=== PATIENT | male | born 1945 | race Caucasian/White ===

== ENCOUNTER 2016-10-22 21:40 | Inpatient (IN) | payer OTHER ==
[~2016-10-22] VITALS: Ht 182.9 cm; Wt 188.6 kg
[2016-10-22 22:47] LABS: BASO % 0 % (0-3); EOS % 0 % (0-3); HEMATOCRIT 42.3 % (39.0-53.0); HEMOGLOBIN 13.8 g/dL (13.0-17.5); LYMPH # 0.4 x10^3/uL (1.0-4.8); LYMPH % 2 % (24-48); MEAN CORPUSCULAR HEMOGLOBIN 28 pg (25-35); MEAN CORPUSCULAR HGB CONC 33 g/dL (31-37); MEAN CORPUSCULAR VOLUME 85 fL (79-100); MONO % 2 % (0-9); NEUT % 95 % (31-73); PLATELET COUNT 240 x10^3/uL (140-400); RED BLOOD COUNT 5.01 x10^6/uL (4.30-5.70); RED CELL DISTRIBUTION WIDTH 17.6 % (11.5-14.5); WHITE BLOOD COUNT 17.1 x10^3/uL (4.0-11.0)
[2016-10-22 22:51] LABS: CALCIUM 9.1 mg/dL (8.5-10.1); CREATININE 1.4 mg/dL (0.7-1.3); GFR 50.4
[2016-10-22 23:01] LABS: ANISOCYTOSIS SLIGHT; PLT ESTIMATE ADEQUATE (ADEQUATE)
--- NOTE | 2016-10-22 23:22 | PHYS DOC ---
Past Medical History Past Medical History: A-Fib, Diabetes-Type II, Hypertension, ME, Other Additional Past Medical Histor: obesity, cellulitis Past Surgical History: Appendectomy, Other Additional Past Surgical Histo: Left wrist Alcohol Use: Rarely Drug Use: None Adult General Chief Complaint Chief Complaint: WEAKNESS/GENERALIZED HPI HPI Patient is a 70 year old male who presents by EMS because he fell and he could not get up. States he fell around noon today and has been on the ground since. He finally was able to crawl to the phone to call EMS. States he has some general body aching since being down all day, but denies specific injury from fall. He notes recent generalized weakness. States he is being treated for a urinary tract infection with an unknown antibiotic currently. He usually gets his care at the [facility]. States he has chronic bilateral lower extremity swelling and redness from lymphedema and chronic cellulitis; this is unchanged from usual status at this time. He denies chest pain, dyspnea, cough, fever or chills, abdominal pain, diarrhea, back pain, headache, vision changes, dizziness , neck pain, numbness, tingling, focal weakness. Review of Systems Review of Systems Constitutional: Denies fever or chills [] Eyes: Denies change in visual acuity, redness, or eye pain [] HENT: Denies nasal congestion or sore throat [] Respiratory: Denies cough or shortness of breath [] Cardiovascular: No additional information not addressed in HPI [] GI: Denies abdominal pain, nausea, vomiting, bloody stools or diarrhea [] : Denies dysuria or hematuria [] Musculoskeletal: Denies back pain or joint pain [] Integument: Denies rash or skin lesions [] Neurologic: Denies headache, focal weakness or sensory changes [] Endocrine: Denies polyuria or polydipsia [] Allergies Allergies Allergies Coded Allergies Type Severity Reaction Last Updated Verified No Known Drug Allergies 10/22/16 No Physical Exam Physical Exam Constitutional: Well developed, well nourished, no acute distress, non-toxic appearance. [] HENT: Normocephalic, atraumatic, bilateral external ears normal, oropharynx moist, no oral exudates, nose normal. [] Eyes: PERRLA, EOMI, conjunctiva normal, no discharge. [] Neck: Normal range of motion, no tenderness, supple. [] Cardiovascular:Heart rate regular rhythm [] Lungs & Thorax: Bilateral breath sounds clear to auscultation [] Abdomen: Bowel sounds normal, soft, no tenderness. [] Skin: Warm, dry, no erythema, no rash. [] Back: No tenderness, no CVA tenderness. [] Extremities: No tenderness, ROM intact, bilateral 2+ lower extremity edema with brawny and rubor skin changes and intermittent blistering and weeping superficial ulcerations. [] Neurologic: Alert and oriented X 3, normal motor function, normal sensory function, no focal deficits noted. [] Psychologic: Affect normal, judgement normal, mood normal. [] Current Patient Data Vital Signs Vital Signs Date Time Temp Pulse Resp B/P (MAP) Pulse Ox O2 Delivery O2 Flow Rate FiO2 10/22/16 22:44 92 22 130/67 (88) 93 Nasal Cannula 2.0 10/22/16 21:52 98.4 98.4 Lab Values Laboratory Tests Test 10/22/16 22:25 White Blood Count 17.1 x10^3/uL (4.0-11.0) H Red Blood Count 5.01 x10^6/uL (4.30-5.70) Hemoglobin 13.8 g/dL (13.0-17.5) Hematocrit 42.3 % (39.0-53.0) Mean Corpuscular Volume 85 fL (79-100) Mean Corpuscular Hemoglobin 28 pg (25-35) Mean Corpuscular Hemoglobin Concent 33 g/dL (31-37) Red Cell Distribution Width 17.6 % (11.5-14.5) H Platelet Count 240 x10^3/uL (140-400) Neutrophils (%) (Auto) 95 % (31-73) H Lymphocytes (%) (Auto) 2 % (24-48) L Monocytes (%) (Auto) 2 % (0-9) Eosinophils (%) (Auto) 0 % (0-3) Basophils (%) (Auto) 0 % (0-3) Neutrophils # (Auto) 16.3 x10^3uL (1.8-7.7) H Lymphocytes # (Auto) 0.4 x10^3/uL (1.0-4.8) L Monocytes # (Auto) 0.4 x10^3/uL (0.0-1.1) Eosinophils # (Auto) 0.0 x10^3/uL (0.0-0.7) Basophils # (Auto) 0.0 x10^3/uL (0.0-0.2) Segmented Neutrophils % 68 % (35-66) H Band Neutrophils % 27 % (0-9) H Lymphocytes % 3 % (24-48) L Monocytes % 2 % (0-10) Platelet Estimate Adequate (ADEQUATE) Platelet Clumps, EDTA Anisocytosis Slight Sodium Level 139 mmol/L (136-145) Potassium Level 4.0 mmol/L (3.5-5.1) Chloride Level 100 mmol/L (98-107) Carbon Dioxide Level 27 mmol/L (21-32) Anion Gap 12 (6-14) Blood Urea Nitrogen 25 mg/dL (8-26) Creatinine 1.4 mg/dL (0.7-1.3) H Estimated GFR (Cockcroft-Gault) 50.4 Glucose Level 117 mg/dL (70-99) H Calcium Level 9.1 mg/dL (8.5-10.1) Creatine Kinase 3660 U/L (39-308) H Laboratory Tests 10/22/16 22:25 Laboratory Tests 10/22/16 22:25 EKG EKG EKG as interpreted by me as atrial fibrillation with wide complex, rate 98, does not meet STEMI criteria Course & Med Decision Making Course & Med Decision Making Pertinent Labs and Imaging studies reviewed. (See chart for details) He has leukocytosis, urinary tract infection and elevated CK. He will be admitted for generalized weakness and rhabdomyolysis. He will be given gentle hydration for rhabdomyolysis given concern of edema present. Rocephin ordered for urinary tract infection. Discussed case with Dr. Wu, who will admit. Dragon Disclaimer Dragon Disclaimer This electronic medical record was generated, in whole or in part, using a voice recognition dictation system. Departure Departure Impression: Primary Impression: Rhabdomyolysis Additional Impression: Generalized weakness Disposition: ADMITTED INPATIENT Condition: STABLE Referrals: UNKNOWN PCP NAME (PCP) Problem Qualifiers Primary Impression: Rhabdomyolysis Rhabdomyolysis type: non-traumatic Qualified Codes: M62.82 - Rhabdomyolysis Constance FRANKS MD Oct 22, 2016 23:22
[2016-10-22 23:43] LABS: BILIRUBIN,URINE MODERATE (NEG); GLUCOSE,URINE NEGATIVE (NEG); NITRITE,URINE NEGATIVE (NEG); PH,URINE 5.5; PROTEIN,URINE >=300 mg/dL (NEG-TRACE)
[2016-10-22 23:50] LABS: BACTERIA,URINE FEW /HPF (0-FEW); RBC,URINE 0 /HPF (0-2)
[2016-10-22 23:51] LABS: SQUAMOUS EPITHELIAL CELL,UR FEW /LPF
[2016-10-23] VITALS (7 sets, daily range): BP systolic 119–158; BP diastolic 59–100
[2016-10-23] MEDS ORDERED: ACETAMINOPHEN 325 MG TABLET. PO PRN
[2016-10-23] MEDS ORDERED: IV NORMAL SALINE 1000ML BAG 1,000 ML IV SCH
[2016-10-23] MEDS ORDERED: ONDANSETRON PF 4 MG/2 ML VIAL. IV PRN
--- NOTE | 2016-10-23 00:08 | ACF ---
Admission Forms Criteria MUSCULOSKELETAL DISEASE GRG Clinical Indications for Admission to Inpatient Care (Place 'X' for any and all applicable criteria): Hospital admission is needed for appropriate care of the patient because of 1 or more of the following: [ ]I. Fracture, dislocation, or other musculoskeletal injury requiring inpatient care(medical) as indicated by 1 or more of the following(4)(5)(6)(7) [ ]a) Vertebral fracture requiring observation for instability or neurologic compromise (8) [ ]b) Compartment syndrome (proven or cannot be ruled out during observation level of care) (9) [ ]c) Limb-threatening injury [ ]d) Major injury requiring inpatient stabilization such as traction initiation or external fixation before internal fixation or closure of complex or open fracture [ ]e) Major injury requiring inpatient treatment after emergency or observation level care (as appropriate) [ ]f) Severe pain requiring acute inpatient management [ ]g) Injury with suspicion of abuse or neglect (eg., child, dependent elderly) [ ]II. Newly diagnosed or suspected bone, joint, or orthopedic device infection (e.g., osteomyelitis, septic arthritis) needing 1 or more of the following(1)(2)(3) [ ]a) IV antibiotics that cannot be initiated in other than inpatient setting (e.g., patient too unstable or home infusion not available) [ ]b) Device removal or replacement [ ]c) Bone or soft tissue debridement [ ]d) Joint drainage (drain placement or repetitive aspirations) [ ]III. Severe rheumatologic disease (e.g., systemic lupus erythematosus, rheumatoid arthritis) with complications or comorbidities (Also use Optimal Recovery Care Criteria or General Recovery Criteria as appropriate on the basis of predominant condition), including 1 or more of the following( 10)(11)(12)(13) [ ]a) Severe infection (e.g., COMPOSITION MIXER infection, sepsis) (14) [ ]b) Respiratory complications, including 1 or more of the following : [ ]i) Pleural effusion with respiratory compromise [ ]ii) Pulmonary hypertension with congestive failure [ ]iii) Respiratory failure [ ]iv) Pulmonary hemorrhage (15) [ ]c) Hematologic disease, including 1 or more of the following: [ ]i) Coagulopathy with bleeding [ ]ii) Thrombosis with hypercoagulable state [ ]iii) Thrombotic thrombocytopenic purpura [ ]d) Cerebritis with seizures, psychosis, or other severe abnormalities [ ]e) Vertebral destruction with monitoring needed for cervical myelopathy& possible respiratory compromise [ ]f) Exacerbation that requires inpatient treatment (e.g., intravenous immunosuppression) (16) [ ]g) Acute renal failure [ ]h) Cerebritis with seizures, psychosis, Altered mental status, or other neurologic abnormalities [ ]i) Pericardial effusion with tamponade [ ]j) Vertebral destruction, with monitoring needed for cervical myelopathy and possible respiratory compromise [ ]IV. Severe vasculitis with complications or comorbidities (Also use Optimal Recovery Care Criteria General Recovery Criteria as appropriate on the basis of predominant condition), including 1 or more of the following(11)(12)(17)(18)(19)(20) [ ]a) Exacerbation that requires inpatient treatment (e.g., intravenous immunosuppression) (19)(21) [ ]b) Pulmonary hemorrhage (15) [ ]c) COMPOSITION MIXER vasculitis with seizures, psychosis, Altered mental status that is severe or persistent, or other severe abnormalities (22) [ ]d) Cerebral infarction [ ]e) Gastrointestinal ischemia [ ]f) Gangrene or threatened amputation [ ]g) Renal failure (16) [ ]h) Other significant complications of vasculitis ( eg., tissue or organ ischemia, organ dysfunction ) [ ]V. Severe myopathy as indicated by 1 or more of the following (28)(29) [ ]a) New onset of airway compromise or inability to swallow [ ]b) Respiratory deterioration with observation needed for impending respiratory failure [ ]c) Exacerbation that requires inpatient treatment (e.g., intravenous immunosuppression) [ ]. Severe crystal gout (arthropathy) indicated by 1 or more of the following (23)(24) [ ]a) Severe pain requiring acute inpatient management [ ]b) Exacerbation that requires inpatient treatment (e.g., intravenous treatment) [X ]VII.Rhabdomyolysis and 1 or more of the following (25)(26)(27) [ ]a) Acute renal failure [X]b) Need for intravenous hydration after emergency or observation level care (as appropriate) [ ]c) Inability to maintain oral hydration [ ]d) Change in mental status [ ]e) Electrolyte abnormality that remains after emergency or observation level care (as appropriate) [ ]VIII Post amputation complication, as indicated by ANY ONE of the following [ ]a) Infection [ ]b) Dehiscence [ ]c) Myodesis failure [ ]IX. Severe pain requiring acute inpatient management due to musculoskeletal condition [ ]X. Musculoskeletal Disease and ALL of the following: [ ]a) Symptom or finding for which emergency and observation care have failed or are not considered appropriate (Use General Criteria: Observation Care as appropriate) [ ]b) Presence of ANY ONE of the following [ ]i) A General Admission Criteria [ ]ii) A Pediatric General Admission Criteria The original [facility] [employer] content created by [facility] has been revised. The portions of the content which have been revised are identified through the use of italic text or in bold, and [facility] has neither reviewed nor approved the modified material. All other unmodified content is copyright [facility]. Please see references footnoted in the original [facility] edition 2016 Admission Criteria Met?: Yes MATTHEW DUNCAN Oct 23, 2016 00:07
--- NOTE | 2016-10-23 06:15 | EKG ---
[facility] [address] [place] [address] Test Date: 2016-10-22 Test Time: 21:52:43 Pat Name: GERRI SANTOS Department: Room: 526 1 Gender: M Lurer: : 1945 Requested By: Constance FRANKS Order Number: [id number] Reading MD: Ernie Walden Measurements Intervals Shafter Rate: 98 P: ID: QRS: -85 QRSD: 80 T: 81 QT: 392 QTc: 503 Interpretive Statements ATRIAL FIBRILLATION ABNORMAL LEFT AXIS DEVIATION LVH WITH REPOLARIZATION ABNORMALITY QRS(T) CONTOUR ABNORMALITY CONSISTENT WITH ANTERIOR INFARCT PROBABLY OLD CONSISTENT WITH INFERIOR INFARCT PROBABLY OLD RI6.01 Unconfirmed report No previous ECG available for comparison Electronically Signed On 10-28-2016 9:25:57 CDT by Ernie Walden
[2016-10-23] MEDS ORDERED: SULF1TAB23 PO (12:40)
[2016-10-23] MEDS ORDERED: CRESTOR10 MG PO (12:40)
[2016-10-23] MEDS ORDERED: METO25TA4 PO (12:40)
[2016-10-23] MEDS ORDERED: INSU100V13 SQ (12:40)
[2016-10-23] MEDS ORDERED: FURO40TA4 PO (12:40)
[2016-10-23] MEDS ORDERED: METF-620 PO (12:40)
[2016-10-23] MEDS ORDERED: NITR100C6 PO (12:40)
[2016-10-23] MEDS ORDERED: CLON0.1T PO (12:40)
[2016-10-23] MEDS ORDERED: LOSA100T6 PO (12:40)
[2016-10-23] MEDS ORDERED: INSU100C4 SQ ×2 (12:40→13:11)
[2016-10-23] MEDS ORDERED: SMZ/TMP 400/80MG TABLET. PO SCH (13:30)
[2016-10-23] MEDS ORDERED: ATORVASTATIN CALCIUM 40 MG TABLET. PO SCH (13:30)
[2016-10-23] MEDS: LOSARTAN POTASSIUM 50 MG TABLET. PO SCH (14:19)
[2016-10-23] MEDS: cloNIDine HCL 0.1 MG TABLET PO SCH ×2 (14:20→22:41)
[2016-10-23] MEDS: FUROSEMIDE 40 MG TABLET. PO SCH (14:20)
[2016-10-23] MEDS: INSULIN ASPART 300 UNITS/3 ML INSULN.PEN SQ SCH ×2 (14:27→17:18)
--- NOTE | 2016-10-23 19:32 | HP ---
ADMIT DATE: 10/23/2016 CHIEF COMPLAINT: Weakness, fall. "I can't get up." Found on the floor after 9 hours. HISTORY OF PRESENT ILLNESS: The patient is a pleasant elderly white male who fell at home. He is very weak. He lay on the floor for 9 hours. He complained of back pain and some bruising on his back. He apparently was eventually able to crawl and call EMS. He states he is being treated for urinary tract infection currently and usually goes to the [facility]. He also complains of severe lower extremity edema and swelling which is chronic for him, although it is worse now. I have discussed the case with the ER physician. It appears that the patient has severe rhabdomyolysis from being down on the ground for so long without much movement. His CPK level was 3660. We are going to admit the patient and do some wound care and give him fluids, and he may even need long-term care placement. PAST MEDICAL HISTORY: Obesity, chronic lower extremity edema, chronic cellulitis, atrial fibrillation, diabetes, hypertension, myocardial infarction, and left wrist surgery. ALLERGIES: None. FAMILY HISTORY: Coronary artery disease. SOCIAL HISTORY: Does not drink, smoke, or take drugs. MEDICATIONS: Reviewed. Please refer to the [facility]. REVIEW OF SYSTEMS: GENERAL: He complains of weakness and body aches. SKIN: No bruising, hair changes, or rashes. EYES: No blurred, double, or loss of vision. NOSE AND THROAT: No history of nosebleeds, hoarseness, or sore throat. HEART: No history of palpitations, chest pain, or shortness of breath on exertion. LUNGS: Denies cough, hemoptysis, wheezing, or shortness of breath. GASTROINTESTINAL: Denies changes in appetite, nausea, vomiting, diarrhea, or constipation. GENITOURINARY: No history of frequency, urgency, hesitancy, or nocturia. NEUROLOGIC: He complains of falls. PSYCHIATRIC: No history of panic, anxiety, or depression. ENDOCRINE: No history of heat or cold intolerance, polyuria, or polydipsia. EXTREMITIES: Denies muscle weakness, joint pain, pain on walking, or stiffness. PHYSICAL EXAMINATION: VITAL SIGNS: Temperature afebrile, pulse 92, respirations 18, and blood pressure 143/67. GENERAL: He is awake, alert, appears very weak. He is large. HEART: Distant S1, S2. LUNGS: Diminished. ABDOMEN: Soft, obese. EXTREMITIES: 3+ edema. He has also got severe chronic cellulitis. ENDOCRINE: No thyromegaly. LYMPHATICS: No cervical nodes. HEMATOPOIETIC: No bruising. ASSESSMENT AND PLAN: Fall with severe rhabdomyolysis, multiple severe comorbidities, and debility. Suspect he might need a long-term care placement. For now, we are going to give him IV antibiotics, IV fluids. Consult ____. Consult Infectious Disease. Student Liaison Officer to assist with possible long-term care placement. Continue home medications. CAREN PUGA DO DR: CARMEN/edilma JOB#: [id number] / [id number]
[2016-10-23] MEDS: PIPERACILLIN/TAZOBACTAM 3.375 GM in IV NORMAL SALINE 50ML 50 ML IV SCH (22:42)
[2016-10-23] MEDS: METOPROLOL TART IMMED RELEASE 25 MG TABLET. PO SCH (22:42)
[2016-10-23] MEDS: INSULIN DETEMIR 300 UNITS/3 ML INSULN.PEN. SQ SCH (22:51)
[2016-10-24] VITALS (8 sets, daily range): BP systolic 107–159; BP diastolic 50–105
--- NOTE | 2016-10-24 04:49 | CONS ---
DATE OF CONSULTATION: 10/23/2016 ATTENDING PHYSICIAN: Chel Wu MD The patient was seen at the request of Dr. Cox for rehab evaluation. HISTORY OF PRESENT ILLNESS: This is a 70-year-old right-handed male admitted through the Emergency Room last evening after he was found lying on the floor of his house for about 9 hours after he fell and he could not get up, he felt weak in the last few days after getting treatment for urinary tract infection. The patient is being treated for cellulitis of lower extremities. He had chronic bilateral lower extremity swelling and redness from lymphedema and cellulitis. The patient admits some lower back and knee area pain, which was there in the past. The patient with known atrial fibrillation, diabetes mellitus type 2, hypertension, previous myocardial infarction, obesity, appendectomy, and left wrist surgery. He apparently had an accident and had some nerve damage to both hands. 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 He lives alone, had no stairs for him to manage. He usually walks without any assistive devices. He is not known allergic to any medication. He denies any dysuria. He denies any constipation. The patient asked for Physical Therapy and Occupational Therapy note, he got up and walked with a roller walker for short distance. They recommended him to go to Intermediate Care Unit. PHYSICAL EXAMINATION: Today revealed a middle-aged male. He is alert, oriented to time, place, person and circumstance and follows commands appropriately, moves all 4 extremities voluntarily where he had 4+/5 grade muscle strength and deep tendon reflexes are decreased overall with absent knee and ankle jerks. He had edema of both lower extremities with redness and weeping skin lesions in his left leg. The patient had decreased touch and pinprick sensation in a sock and glove distribution. He had a crepitus on range of motion on both knee joints without any obvious knee joint effusion. He had pain free range of motion of his hip joints. He had tenderness to palpation over sacroiliac joint area bilaterally. Straight leg raising test is negative bilaterally. I have not tested his mobility skills at this time. I have examined him while he is sitting in bedside chair, but as per Physical Therapy notes dated this afternoon, he required minimal assist to moderate assistance with transfers, sit to stand using a roller walker with minimal assistance ____ initial stand up from the chair, minimal assistance also to sit in chair as the patient with a slight lower back pain. He walked for about 30 feet with a roller walker with a contact guard assistance slow tess wide base of support and short step length. He complains of increased shortness of breath while up walking, he requires contact guard assistance as the patient has slight low back pain while up. The patient has some skin irritation around the right big toe secondary to fall where he injured his right big toe. ASSESSMENT: A middle-aged male with diabetes mellitus with peripheral neuropathy, obesity, degenerative joint disease of both knees, chronic lower back pain from degenerative disk disease of lumbar vertebrae, chronic lower extremity edema from lymphedema with associated cellulitis and the patient also with known atrial fibrillation, hypertension, and previous myocardial infarction. RECOMMENDATION: To obtain x-rays of his knees and lumbar spine to determine the extent of his degenerative joint disease and disk problems. I doubt he had any new compression fractures to get him Rooke boots to get ____ of some other redness and swelling of his feet. Agree with the plan for physical therapy and occupational therapy and transfer to Intermediate Care Unit when he is medically stable. Dr. Cox, I appreciate asking me to participate in the care of this interesting patient. I will be glad to follow him with you as needed for the rehabilitation. BRENTON GUTIÉRREZ MD DR: PAMELA/edilma JOB#: [id number] / [id number]
[2016-10-24] MEDS: PIPERACILLIN/TAZOBACTAM 3.375 GM in IV NORMAL SALINE 50ML 50 ML IV SCH ×2 (06:20→12:08)
--- NOTE | 2016-10-24 08:18 | RAD ---
Indication: Fall and back pain. Time of exam 0804 hours. AP and lateral views of the lumbar spine were obtained. Curvature is normal. There is minimal retrolisthesis of L2 on L3. Vertebral body heights are well-maintained. No acute compression fracture is detected. There is significant degenerative disc disease at the T12-L1, L1-2 and L2-3 levels with moderate disc space narrowing and endplate osteophyte formation. Impression: Spondylosis in the lower thoracic and upper lumbar spine. No acute bony abnormality is seen.
--- NOTE | 2016-10-24 08:19 | RAD ---
Indication: Knee pain and fall. Time of exam 0759 hours. Multiple views bilateral knees were obtained. There is severe medial compartmental degenerative change on the left and moderate medial compartmental degenerative change on the right. Lateral compartments show lesser degenerative change with just marginal osteophyte formation. No fractures are seen. Ration: Bilateral degenerative change, greatest on the left.
[2016-10-24] MEDS: LOSARTAN POTASSIUM 50 MG TABLET. PO SCH (08:42)
[2016-10-24] MEDS: cloNIDine HCL 0.1 MG TABLET PO SCH ×2 (08:43→22:14)
[2016-10-24] MEDS: FUROSEMIDE 40 MG TABLET. PO SCH ×2 (08:44→14:50)
[2016-10-24] MEDS: INSULIN ASPART 300 UNITS/3 ML INSULN.PEN SQ SCH ×3 (08:47→16:58)
[2016-10-24] MEDS: METOPROLOL TART IMMED RELEASE 25 MG TABLET. PO SCH ×2 (09:36→22:14)
--- NOTE | 2016-10-24 09:57 | PDOC ---
PROGRESS NOTES Subjective Subjective He did not sleep well with air mattress as it is too soft. 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 Assessment Assessment Problems Medical Problems: (1) Generalized weakness Status: Acute (2) Rhabdomyolysis Status: Acute Plan Plan of Care To get him up as tolerated and to SNF when medically stable. Comment Review of Relevant I have reviewed the following items gela (where applicable) has been applied. Labs Laboratory Tests Test 10/22/16 22:25 10/22/16 23:38 10/23/16 07:51 10/23/16 11:53 White Blood Count 17.1 x10^3/uL (4.0-11.0) Red Blood Count 5.01 x10^6/uL (4.30-5.70) Hemoglobin 13.8 g/dL (13.0-17.5) Hematocrit 42.3 % (39.0-53.0) Mean Corpuscular Volume 85 fL (79-100) Mean Corpuscular Hemoglobin 28 pg (25-35) Mean Corpuscular Hemoglobin Concent 33 g/dL (31-37) Red Cell Distribution Width 17.6 % (11.5-14.5) Platelet Count 240 x10^3/uL (140-400) Neutrophils (%) (Auto) 95 % (31-73) Lymphocytes (%) (Auto) 2 % (24-48) Monocytes (%) (Auto) 2 % (0-9) Eosinophils (%) (Auto) 0 % (0-3) Basophils (%) (Auto) 0 % (0-3) Neutrophils # (Auto) 16.3 x10^3uL (1.8-7.7) Lymphocytes # (Auto) 0.4 x10^3/uL (1.0-4.8) Monocytes # (Auto) 0.4 x10^3/uL (0.0-1.1) Eosinophils # (Auto) 0.0 x10^3/uL (0.0-0.7) Basophils # (Auto) 0.0 x10^3/uL (0.0-0.2) Segmented Neutrophils % 68 % (35-66) Band Neutrophils % 27 % (0-9) Lymphocytes % 3 % (24-48) Monocytes % 2 % (0-10) Platelet Estimate Adequate (ADEQUATE) Platelet Clumps, EDTA Anisocytosis Slight Sodium Level 139 mmol/L (136-145) Potassium Level 4.0 mmol/L (3.5-5.1) Chloride Level 100 mmol/L (98-107) Carbon Dioxide Level 27 mmol/L (21-32) Anion Gap 12 (6-14) Blood Urea Nitrogen 25 mg/dL (8-26) Creatinine 1.4 mg/dL (0.7-1.3) Estimated GFR (Cockcroft-Gault) 50.4 Glucose Level 117 mg/dL (70-99) Calcium Level 9.1 mg/dL (8.5-10.1) Creatine Kinase 3660 U/L (39-308) Urine Collection Type Unknown Urine Color [place] Urine Clarity Cloudy Urine pH 5.5 Urine Specific [place] >=1.030 Urine Protein >=300 mg/dL (NEG-TRACE) Urine Glucose (UA) Negative mg/dL (NEG) Urine Ketones (Stick) Trace mg/dL (NEG) Urine Blood Large (NEG) Urine Nitrite Negative (NEG) Urine Bilirubin Moderate (NEG) Urine Urobilinogen Dipstick 1.0 mg/dL (0.2 mg/dL) Urine Leukocyte Esterase Small (NEG) Urine RBC 0 /HPF (0-2) Urine WBC 1-4 /HPF (0-4) Urine Squamous Epithelial Cells Few /LPF Urine Amorphous Sediment Present /HPF Urine Bacteria Few /HPF (0-FEW) Urine Hyaline Casts Moderate /HPF Urine Mucus Mod /LPF Glucose (Fingerstick) 137 mg/dL (70-99) 207 mg/dL (70-99) Test 10/23/16 16:58 10/23/16 20:44 10/24/16 07:35 Glucose (Fingerstick) 256 mg/dL (70-99) 386 mg/dL (70-99) 225 mg/dL (70-99) Laboratory Tests Test 10/23/16 11:53 10/23/16 16:58 10/23/16 20:44 10/24/16 07:35 Glucose (Fingerstick) 207 mg/dL (70-99) 256 mg/dL (70-99) 386 mg/dL (70-99) 225 mg/dL (70-99) Medications Current Medications Ondansetron HCl (Zofran) 4 mg PRN Q8HRS PRN IV NAUSEA/VOMITING; Start 10/23/16 at 00:00; Stop 10/23/16 at 23:59; Status DC Sodium Chloride 1,000 ml @ 100 mls/hr Q10H IV Last administered on 10/23/16 01 :11; Start 10/23/16 at 00:00; Stop 10/23/16 at 00:03; Status DC Acetaminophen (Tylenol) 650 mg PRN Q4HRS PRN PO FEVER; Start 10/23/16 at 00:00; Stop 10/23/16 at 23:59; Status DC Ceftriaxone Sodium 1 gm/ Sodium Chloride 50 ml @ 100 mls/hr Q24H IV ; Start 10/23/16 at 22:00; Stop 10/23/16 at 22:00; Status DC Ceftriaxone Sodium 1 gm/ Sodium Chloride 50 ml @ 100 mls/hr ONCE ONCE IV Last administered on 10/23/16 01:11; Start 10/23/16 at 00:30; Stop 10/23/16 at 00: 59; Status DC Clonidine HCl (Catapres) 0.1 mg BID PO Last administered on 10/24/16 08:43; Start 10/23/16 at 13:30 Furosemide (Lasix) 40 mg DAILY PO Last administered on 10/24/16 08:44; Start at 13:30 Metoprolol Tartrate (Lopressor) 75 mg BID PO Last administered on 10/24/16 09: 36; Start 10/23/16 at 21:00 Trimethoprim/ Sulfamethoxazole (Bactrim Ss) 2 tab BID PO Last administered on 14:22; Start 10/23/16 at 13:30; Stop 10/23/16 at 17:14; Status DC Insulin Detemir (Levemir) 160 units QHS SQ Last administered on 10/23/16 22:51 ; Start 10/23/16 at 21:00 Losartan Potassium (Cozaar) 100 mg DAILY PO Last administered on 10/24/16 08:42 ; Start 10/23/16 at 13:30 Atorvastatin Calcium (Lipitor) 40 mg DAILY PO Last administered on 10/23/16 14: 20; Start 10/23/16 at 13:30; Stop 10/23/16 at 16:29; Status DC Insulin Aspart (NovoLOG) 22 units TIDAC SQ Last administered on 10/24/16 08:47 ; Start 10/23/16 at 14:00; Stop 10/24/16 at 09:43; Status DC Piperacillin Sod/ Tazobactam Sod 3.375 gm/Sodium Chloride 50 ml @ 100 mls/hr Q6HRS IV Last administered on 10/24/16 06:20; Start 10/23/16 at 20:30 Insulin Aspart (NovoLOG) 44 units TIDAC SQ ; Start 10/24/16 at 11:30 Active Scripts Active Reported Novolog (Insulin Aspart) 100 Unit/1 Ml Cartridge 22 Unit SQ TIDAC Bactrim 400-80 Mg Tablet (Sulfamethoxazole/Trimethoprim) 1 Each Tablet 2 Tab PO BID Crestor (Rosuvastatin Calcium) 10 Mg Tablet 1 Tab PO DAILY Nitrofurantoin [place]-Mcr 100 Mg (Nitrofurantoin Monohyd/M-Cryst) 100 Mg Capsule 1 Cap PO BID Metoprolol Tartrate 25 Mg Tablet 3 Tab PO BID Metformin Hcl 1,000 Mg Tablet 1,000 Mg PO BIDWMEALS Losartan Potassium 100 Mg Tablet 100 Mg PO DAILY Levemir (Insulin Detemir) 100 Unit/1 Ml Vial 160 Unit SQ HS Novolog (Insulin Aspart) 100 Unit/1 Ml Cartridge 44 Unit SQ TIDAC Furosemide 40 Mg Tablet 1 Tab PO DAILY Clonidine Hcl 0.1 Mg Tablet 0.1 Mg PO BID Vitals/I & O Vital Sign - Last 24 Hours 10/23/16 10/23/16 10/23/16 10/23/16 11:06 14:19 14:20 15:00 Temp 98.1 97.8 98.1 97.8 Pulse 105 90 90 92 Resp 20 20 B/P (MAP) 119/65 (83) 143/71 143/71 130/100 (110) Pulse Ox 94 96 O2 Delivery Nasal Cannula Nasal Cannula O2 Flow Rate 2.0 3.0 10/23/16 10/23/16 10/23/16 10/23/16 19:00 20:00 22:41 22:42 Temp 98.7 98.7 Pulse 96 96 96 Resp 18 B/P (MAP) 139/93 (108) 139/93 139/93 Pulse Ox 97 O2 Delivery Nasal Cannula Nasal Cannula O2 Flow Rate 3.0 3.0 10/23/16 10/24/16 10/24/16 10/24/16 23:00 03:00 07:35 08:42 Temp 98.1 98.2 97.5 98.1 98.2 97.5 Pulse 96 103 80 80 Resp 18 17 18 B/P (MAP) 149/60 (89) 125/50 (75) 107/64 (78) 107/67 Pulse Ox 93 100 96 O2 Delivery Nasal Cannula Nasal Cannula Nasal Cannula O2 Flow Rate 3.0 3.0 3.0 10/24/16 10/24/16 08:43 09:36 Pulse 80 80 B/P (MAP) 107/64 107/64 Intake and Output 10/23/16 10/23/16 10/24/16 15:00 23:00 07:00 Intake Total 558 ml 558 ml 1100 ml Output Total 4 ml 850 ml Balance 558 ml 554 ml 250 ml BRENTON GUTIÉRREZ MD Oct 24, 2016 09:56
--- NOTE | 2016-10-24 11:55 | PDOC ---
PROGRESS NOTES Chief Complaint Chief Complaint Fall with severe Rhabdomyolysis Obesity, chronic lower extremity edema, chronic cellulitis, atrial fibrillation, diabetes, hypertension, myocardial infarction, and left wrist surgery. History of Present Illness History of Present Illness Seen and examined DW RN GABBI Pt wants and insist on doubling his insulin. "Iv been doing this a long time" Vitals Vitals Vital Signs Date Time Temp Pulse Resp B/P (MAP) Pulse Ox O2 Delivery O2 Flow Rate FiO2 10/24/16 10:30 97.7 66 18 139/78 (98) 95 Nasal Cannula 3.0 97.7 Physical Exam General: Alert, Oriented X3, Cooperative Heart: Regular rate, Normal S1, Normal S2 Lungs: Clear Abdomen: Normal bowel sounds Extremities: Other (Massive erythematous edema) Skin: Other (legs with cellulitis) Labs LABS Laboratory Tests Test 10/23/16 11:53 10/23/16 16:58 10/23/16 20:44 10/24/16 07:35 Glucose (Fingerstick) 207 mg/dL (70-99) 256 mg/dL (70-99) 386 mg/dL (70-99) 225 mg/dL (70-99) Test 10/24/16 11:26 Glucose (Fingerstick) 209 mg/dL (70-99) Review of Systems Review of Systems co hunger co qureshi wants his normal insulin dose Assessment and Plan Assessmemt and Plan Problems Medical Problems: (1) Generalized weakness Status: Acute (2) Rhabdomyolysis Status: Acute Fall with severe Rhabdomyolysis Obesity, chronic lower extremity edema, chronic cellulitis, atrial fibrillation, diabetes, hypertension, myocardial infarction, and left wrist surgery. Plan Will cont IV fluids recheck labs Appreciate subspecialist input Increase insulin as he insist on it PTOT SNu eval( ?LTC) Prog guarded Problems: Comment Review of Relevant I have reviewed the following items gela (where applicable) has been applied. Labs Laboratory Tests Test 10/22/16 22:25 10/22/16 23:38 10/23/16 07:51 10/23/16 11:53 White Blood Count 17.1 x10^3/uL (4.0-11.0) Red Blood Count 5.01 x10^6/uL (4.30-5.70) Hemoglobin 13.8 g/dL (13.0-17.5) Hematocrit 42.3 % (39.0-53.0) Mean Corpuscular Volume 85 fL (79-100) Mean Corpuscular Hemoglobin 28 pg (25-35) Mean Corpuscular Hemoglobin Concent 33 g/dL (31-37) Red Cell Distribution Width 17.6 % (11.5-14.5) Platelet Count 240 x10^3/uL (140-400) Neutrophils (%) (Auto) 95 % (31-73) Lymphocytes (%) (Auto) 2 % (24-48) Monocytes (%) (Auto) 2 % (0-9) Eosinophils (%) (Auto) 0 % (0-3) Basophils (%) (Auto) 0 % (0-3) Neutrophils # (Auto) 16.3 x10^3uL (1.8-7.7) Lymphocytes # (Auto) 0.4 x10^3/uL (1.0-4.8) Monocytes # (Auto) 0.4 x10^3/uL (0.0-1.1) Eosinophils # (Auto) 0.0 x10^3/uL (0.0-0.7) Basophils # (Auto) 0.0 x10^3/uL (0.0-0.2) Segmented Neutrophils % 68 % (35-66) Band Neutrophils % 27 % (0-9) Lymphocytes % 3 % (24-48) Monocytes % 2 % (0-10) Platelet Estimate Adequate (ADEQUATE) Platelet Clumps, EDTA Anisocytosis Slight Sodium Level 139 mmol/L (136-145) Potassium Level 4.0 mmol/L (3.5-5.1) Chloride Level 100 mmol/L (98-107) Carbon Dioxide Level 27 mmol/L (21-32) Anion Gap 12 (6-14) Blood Urea Nitrogen 25 mg/dL (8-26) Creatinine 1.4 mg/dL (0.7-1.3) Estimated GFR (Cockcroft-Gault) 50.4 Glucose Level 117 mg/dL (70-99) Calcium Level 9.1 mg/dL (8.5-10.1) Creatine Kinase 3660 U/L (39-308) Urine Collection Type Unknown Urine Color [place] Urine Clarity Cloudy Urine pH 5.5 Urine Specific [place] >=1.030 Urine Protein >=300 mg/dL (NEG-TRACE) Urine Glucose (UA) Negative mg/dL (NEG) Urine Ketones (Stick) Trace mg/dL (NEG) Urine Blood Large (NEG) Urine Nitrite Negative (NEG) Urine Bilirubin Moderate (NEG) Urine Urobilinogen Dipstick 1.0 mg/dL (0.2 mg/dL) Urine Leukocyte Esterase Small (NEG) Urine RBC 0 /HPF (0-2) Urine WBC 1-4 /HPF (0-4) Urine Squamous Epithelial Cells Few /LPF Urine Amorphous Sediment Present /HPF Urine Bacteria Few /HPF (0-FEW) Urine Hyaline Casts Moderate /HPF Urine Mucus Mod /LPF Glucose (Fingerstick) 137 mg/dL (70-99) 207 mg/dL (70-99) Test 10/23/16 16:58 10/23/16 20:44 10/24/16 07:35 10/24/16 11:26 Glucose (Fingerstick) 256 mg/dL (70-99) 386 mg/dL (70-99) 225 mg/dL (70-99) 209 mg/dL (70-99) Laboratory Tests Test 10/23/16 11:53 10/23/16 16:58 10/23/16 20:44 10/24/16 07:35 Glucose (Fingerstick) 207 mg/dL (70-99) 256 mg/dL (70-99) 386 mg/dL (70-99) 225 mg/dL (70-99) Test 10/24/16 11:26 Glucose (Fingerstick) 209 mg/dL (70-99) Medications Current Medications Ondansetron HCl (Zofran) 4 mg PRN Q8HRS PRN IV NAUSEA/VOMITING; Start 10/23/16 at 00:00; Stop 10/23/16 at 23:59; Status DC Sodium Chloride 1,000 ml @ 100 mls/hr Q10H IV Last administered on 10/23/16t 01 :11; Start 10/23/16 at 00:00; Stop 10/23/16 at 00:03; Status DC Acetaminophen (Tylenol) 650 mg PRN Q4HRS PRN PO FEVER; Start 10/23/16 at 00:00; Stop 10/23/16 at 23:59; Status DC Ceftriaxone Sodium 1 gm/ Sodium Chloride 50 ml @ 100 mls/hr Q24H IV ; Start 10/23/16 at 22:00; Stop 10/23/16 at 22:00; Status DC Ceftriaxone Sodium 1 gm/ Sodium Chloride 50 ml @ 100 mls/hr ONCE ONCE IV Last administered on 10/23/16 01:11; Start 10/23/16 at 00:30; Stop 10/23/16 at 00: 59; Status DC Clonidine HCl (Catapres) 0.1 mg BID PO Last administered on 10/24/16 08:43; Start 10/23/16 at 13:30 Furosemide (Lasix) 40 mg DAILY PO Last administered on 10/24/16 08:44; Start at 13:30 Metoprolol Tartrate (Lopressor) 75 mg BID PO Last administered on 10/24/16 09: 36; Start 10/23/16 at 21:00 Trimethoprim/ Sulfamethoxazole (Bactrim Ss) 2 tab BID PO Last administered on 14:22; Start 10/23/16 at 13:30; Stop 10/23/16 at 17:14; Status DC Insulin Detemir (Levemir) 160 units QHS SQ Last administered on 10/23/16 22:51 ; Start 10/23/16 at 21:00 Losartan Potassium (Cozaar) 100 mg DAILY PO Last administered on 10/24/16 08:42 ; Start 10/23/16 at 13:30 Atorvastatin Calcium (Lipitor) 40 mg DAILY PO Last administered on 10/23/16 14: 20; Start 10/23/16 at 13:30; Stop 10/23/16 at 16:29; Status DC Insulin Aspart (NovoLOG) 22 units TIDAC SQ Last administered on 10/24/16 08:47 ; Start 10/23/16 at 14:00; Stop 10/24/16 at 09:43; Status DC Piperacillin Sod/ Tazobactam Sod 3.375 gm/Sodium Chloride 50 ml @ 100 mls/hr Q6HRS IV Last administered on 10/24/16 06:20; Start 10/23/16 at 20:30 Insulin Aspart (NovoLOG) 44 units TIDAC SQ ; Start 10/24/16 at 11:30 Active Scripts Active Reported Novolog (Insulin Aspart) 100 Unit/1 Ml Cartridge 22 Unit SQ TIDAC Bactrim 400-80 Mg Tablet (Sulfamethoxazole/Trimethoprim) 1 Each Tablet 2 Tab PO BID Crestor (Rosuvastatin Calcium) 10 Mg Tablet 1 Tab PO DAILY Nitrofurantoin [place]-Mcr 100 Mg (Nitrofurantoin Monohyd/M-Cryst) 100 Mg Capsule 1 Cap PO BID Metoprolol Tartrate 25 Mg Tablet 3 Tab PO BID Metformin Hcl 1,000 Mg Tablet 1,000 Mg PO BIDWMEALS Losartan Potassium 100 Mg Tablet 100 Mg PO DAILY Levemir (Insulin Detemir) 100 Unit/1 Ml Vial 160 Unit SQ HS Novolog (Insulin Aspart) 100 Unit/1 Ml Cartridge 44 Unit SQ TIDAC Furosemide 40 Mg Tablet 1 Tab PO DAILY Clonidine Hcl 0.1 Mg Tablet 0.1 Mg PO BID Vitals/I & O Vital Sign - Last 24 Hours 10/23/16 10/23/16 10/23/16 10/23/16 14:19 14:20 15:00 19:00 Temp 97.8 98.7 97.8 98.7 Pulse 90 90 92 96 Resp 20 18 B/P (MAP) 143/71 143/71 130/100 (110) 139/93 (108) Pulse Ox 96 97 O2 Delivery Nasal Cannula Nasal Cannula O2 Flow Rate 3.0 3.0 10/23/16 10/23/16 10/23/16 10/23/16 20:00 22:41 22:42 23:00 Temp 98.1 98.1 Pulse 96 96 96 Resp 18 B/P (MAP) 139/93 139/93 149/60 (89) Pulse Ox 93 O2 Delivery Nasal Cannula Nasal Cannula O2 Flow Rate 3.0 3.0 10/24/16 10/24/16 10/24/16 10/24/16 03:00 07:35 08:00 08:42 Temp 98.2 97.5 98.2 97.5 Pulse 103 80 80 Resp 17 18 B/P (MAP) 125/50 (75) 107/64 (78) 107/67 Pulse Ox 100 96 O2 Delivery Nasal Cannula Nasal Cannula Nasal Cannula O2 Flow Rate 3.0 3.0 3.0 10/24/16 10/24/16 10/24/16 08:43 09:36 10:30 Temp 97.7 97.7 Pulse 80 80 66 Resp 18 B/P (MAP) 107/64 107/64 139/78 (98) Pulse Ox 95 O2 Delivery Nasal Cannula O2 Flow Rate 3.0 Intake and Output 10/23/16 10/23/16 10/24/16 15:00 23:00 07:00 Intake Total 558 ml 558 ml 1100 ml Output Total 4 ml 850 ml Balance 558 ml 554 ml 250 ml CAREN PUGA III DO Oct 24, 2016 11:55
--- NOTE | 2016-10-24 13:39 | PDOC ---
Infectious Disease Note Vital Sign Vital Signs Vital Signs Date Time Temp Pulse Resp B/P (MAP) Pulse Ox O2 Delivery O2 Flow Rate FiO2 10/24/16 10:30 97.7 66 18 139/78 (98) 95 Nasal Cannula 3.0 97.7 Labs Lab Laboratory Tests Test 10/23/16 16:58 10/23/16 20:44 10/24/16 07:35 10/24/16 11:26 Glucose (Fingerstick) 256 mg/dL (70-99) 386 mg/dL (70-99) 225 mg/dL (70-99) 209 mg/dL (70-99) Objective Assessment Leukocytosis Cellulitis of LLE superimposed on chronic venous insufficiency Rhabdomyolysis post fall DM Morbid Obesity, BMI 58 Recent Dx UIT-took Bactrim 1-2 days prior to admit Plan Plan of Care Zosyn Monitor WBC, Cr and temp Local wound care and leg elevation Glucose control Diet and weight management Thank you [id number] Attending Co-Sign The patient was seen and interviewed as well as examined at the bedside. The chart was reviewed. The case was discussed. Agree with the plan of care. JONNY CHAVEZ APRN Oct 24, 2016 13:39 GLENNY ROQUE MD Oct 24, 2016 13:54
[2016-10-24] MEDS: CIPROFLOXACIN HCL 250 MG TABLET. PO SCH ×2 (14:49→22:13)
[2016-10-24] MEDS: LINEZOLID 600 MG TABLET PO SCH ×2 (14:49→22:13)
[2016-10-24] MEDS: HYDROcodone/APAP 5/325MG 1 TAB TABLET PO PRN ×2 (16:55→22:15)
[2016-10-24] MEDS: TAMSULOSIN 0.4 MG CAP.ER.24H. PO SCH (17:31)
[2016-10-24] MEDS: INSULIN DETEMIR 300 UNITS/3 ML INSULN.PEN. SQ SCH (21:00)
[2016-10-24] MEDS: ZOLPIDEM 5 MG TABLET. PO SCH (22:14)
[2016-10-24] MEDS ORDERED: ZOLPIDEM 5 MG TABLET. PO PRN (22:15)
[2016-10-25 03:00] VITALS: BP 131/72
[2016-10-25] MEDS: INSULIN ASPART 300 UNITS/3 ML INSULN.PEN SQ SCH ×3 (07:30→17:20)
[2016-10-25 07:35] VITALS: BP 139/65
[2016-10-25] MEDS: METOPROLOL TART IMMED RELEASE 25 MG TABLET. PO SCH ×2 (08:51→21:45)
[2016-10-25] MEDS: POTASSIUM CHLORIDE 20 MEQ TABLET.ER. PO SCH (08:52)
[2016-10-25] MEDS: LOSARTAN POTASSIUM 50 MG TABLET. PO SCH (08:52)
[2016-10-25] MEDS: CIPROFLOXACIN HCL 250 MG TABLET. PO SCH ×2 (08:53→21:44)
[2016-10-25] MEDS: LINEZOLID 600 MG TABLET PO SCH ×2 (08:53→21:43)
--- NOTE | 2016-10-25 08:53 | PDOC ---
Infectious Disease Note Subjective Subjective RN unable to place IV yesterday, abx changed to oral route. Tolerating well Strength improving, says able to walk now Denies pain, Hoping to go home soon ROS ROS GEN: Denies fevers, chills, sweats CV: Denies chest pain RESP: Denies shortness of air, cough GI: Denies n/v/d Vital Sign Vital Signs Vital Signs Date Time Temp Pulse Resp B/P (MAP) Pulse Ox O2 Delivery O2 Flow Rate FiO2 10/25/16 03:00 96.9 83 19 131/72 (91) 93 Nasal Cannula 3.0 96.9 Physical Exam PHYSICAL EXAM GENERAL: Sitting side of bed, legs down, eating LUNGS: Clear HEART: S1S2 ABD: Obese, BS present, soft, NT EXT: BLE edema, L>R with chronic stastis changes. 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 Objective Assessment Leukocytosis Cellulitis of LLE superimposed on chronic venous insufficiency Rhabdomyolysis post fall DM Morbid Obesity, BMI 58 Recent Dx UIT-took Bactrim 1-2 days prior to admit Plan Plan of Care Zyvox and cipro f/u today's labs Local wound care and leg elevation Glucose control Diet and weight management Attending Co-Sign The patient was seen and interviewed as well as examined at the bedside. The chart was reviewed. The case was discussed. Agree with the plan of care. JONNY CHAVEZ APRN Oct 25, 2016 08:53 GLENNY ROQUE MD Oct 25, 2016 14:22
[2016-10-25] MEDS: cloNIDine HCL 0.1 MG TABLET PO SCH ×2 (08:54→21:45)
[2016-10-25] MEDS: FUROSEMIDE 40 MG TABLET. PO SCH ×2 (08:54→14:29)
[2016-10-25] MEDS: TAMSULOSIN 0.4 MG CAP.ER.24H. PO SCH (08:54)
[2016-10-25 10:15] LABS: BASO % 0 % (0-3); EOS % 3 % (0-3); HEMATOCRIT 38.2 % (39.0-53.0); HEMOGLOBIN 12.5 g/dL (13.0-17.5); LYMPH # 1.2 x10^3/uL (1.0-4.8); LYMPH % 15 % (24-48); MEAN CORPUSCULAR HEMOGLOBIN 28 pg (25-35); MEAN CORPUSCULAR HGB CONC 33 g/dL (31-37); MEAN CORPUSCULAR VOLUME 84 fL (79-100); MONO % 9 % (0-9); NEUT % 72 % (31-73); PLATELET COUNT 201 x10^3/uL (140-400); RED BLOOD COUNT 4.55 x10^6/uL (4.30-5.70); RED CELL DISTRIBUTION WIDTH 17.6 % (11.5-14.5)
[2016-10-25 10:34] VITALS: BP 121/61
[2016-10-25 10:34] LABS: CALCIUM 8.4 mg/dL (8.5-10.1); CREATININE 1.2 mg/dL (0.7-1.3); GFR 60.2; POTASSIUM 4.5 mmol/L (3.5-5.1)
[2016-10-25 14:30] VITALS: BP 113/74
--- NOTE | 2016-10-25 15:14 | PDOC ---
PROGRESS NOTES Chief Complaint Chief Complaint Fall with severe Rhabdomyolysis Obesity, chronic lower extremity edema, chronic cellulitis, atrial fibrillation, diabetes, hypertension, myocardial infarction, and left wrist surgery.Leukocytosis chronic venous insufficiency DM BMI 58 Recent Dx UIT-took Bactrim 1-2 days prior to admit History of Present Illness History of Present Illness Seen and examined DW RN VSS Pt wants and insist on continuing doubling his insulin. "Iv been doing this a long time" Notes reviewed Vitals Vitals Vital Signs Date Time Temp Pulse Resp B/P (MAP) Pulse Ox O2 Delivery O2 Flow Rate FiO2 10/25/16 10:34 97.5 60 18 121/61 (81) 95 Room Air 97.5 10/25/16 08:00 3.0 Physical Exam General: Alert, Oriented X3, Cooperative Heart: Regular rate, Normal S1, Normal S2 Lungs: Clear Abdomen: Normal bowel sounds Extremities: Other (Massive erythematous edema) Skin: Other (legs with cellulitis) Labs LABS Laboratory Tests Test 10/24/16 16:41 10/24/16 19:40 10/25/16 07:39 10/25/16 09:40 Glucose (Fingerstick) 124 mg/dL (70-99) 113 mg/dL (70-99) 92 mg/dL (70-99) White Blood Count 8.0 x10^3/uL (4.0-11.0) Red Blood Count 4.55 x10^6/uL (4.30-5.70) Hemoglobin 12.5 g/dL (13.0-17.5) Hematocrit 38.2 % (39.0-53.0) Mean Corpuscular Volume 84 fL (79-100) Mean Corpuscular Hemoglobin 28 pg (25-35) Mean Corpuscular Hemoglobin Concent 33 g/dL (31-37) Red Cell Distribution Width 17.6 % (11.5-14.5) Platelet Count 201 x10^3/uL (140-400) Neutrophils (%) (Auto) 72 % (31-73) Lymphocytes (%) (Auto) 15 % (24-48) Monocytes (%) (Auto) 9 % (0-9) Eosinophils (%) (Auto) 3 % (0-3) Basophils (%) (Auto) 0 % (0-3) Neutrophils # (Auto) 5.7 x10^3uL (1.8-7.7) Lymphocytes # (Auto) 1.2 x10^3/uL (1.0-4.8) Monocytes # (Auto) 0.7 x10^3/uL (0.0-1.1) Eosinophils # (Auto) 0.3 x10^3/uL (0.0-0.7) Basophils # (Auto) 0.0 x10^3/uL (0.0-0.2) Sodium Level 138 mmol/L (136-145) Potassium Level 4.5 mmol/L (3.5-5.1) Chloride Level 102 mmol/L (98-107) Carbon Dioxide Level 31 mmol/L (21-32) Anion Gap 5 (6-14) Blood Urea Nitrogen 26 mg/dL (8-26) Creatinine 1.2 mg/dL (0.7-1.3) Estimated GFR (Cockcroft-Gault) 60.2 Glucose Level 183 mg/dL (70-99) Calcium Level 8.4 mg/dL (8.5-10.1) Test 10/25/16 11:21 Glucose (Fingerstick) 182 mg/dL (70-99) Review of Systems Review of Systems co weakness co hunger Assessment and Plan Assessmemt and Plan Problems Medical Problems: (1) Generalized weakness Status: Acute (2) Rhabdomyolysis Status: Acute Fall with severe Rhabdomyolysis Obesity, chronic lower extremity edema, chronic cellulitis, atrial fibrillation, diabetes, hypertension, myocardial infarction, and left wrist surgery.Leukocytosis chronic venous insufficiency DM BMI 58 Recent Dx UIT-took Bactrim 1-2 days prior to admit Plan Iv fluids Home meds Daily labs PTOT Weight loss SNU eval Antibx Problems: Comment Review of Relevant I have reviewed the following items gela (where applicable) has been applied. Labs Laboratory Tests Test 10/23/16 16:58 10/23/16 20:44 10/24/16 07:35 10/24/16 11:26 Glucose (Fingerstick) 256 mg/dL (70-99) 386 mg/dL (70-99) 225 mg/dL (70-99) 209 mg/dL (70-99) Test 10/24/16 14:58 10/24/16 16:41 10/24/16 19:40 10/25/16 07:39 Glucose (Fingerstick) 182 mg/dL (70-99) 124 mg/dL (70-99) 113 mg/dL (70-99) 92 mg/dL (70-99) Test 10/25/16 09:40 10/25/16 11:21 White Blood Count 8.0 x10^3/uL (4.0-11.0) Red Blood Count 4.55 x10^6/uL (4.30-5.70) Hemoglobin 12.5 g/dL (13.0-17.5) Hematocrit 38.2 % (39.0-53.0) Mean Corpuscular Volume 84 fL (79-100) Mean Corpuscular Hemoglobin 28 pg (25-35) Mean Corpuscular Hemoglobin Concent 33 g/dL (31-37) Red Cell Distribution Width 17.6 % (11.5-14.5) Platelet Count 201 x10^3/uL (140-400) Neutrophils (%) (Auto) 72 % (31-73) Lymphocytes (%) (Auto) 15 % (24-48) Monocytes (%) (Auto) 9 % (0-9) Eosinophils (%) (Auto) 3 % (0-3) Basophils (%) (Auto) 0 % (0-3) Neutrophils # (Auto) 5.7 x10^3uL (1.8-7.7) Lymphocytes # (Auto) 1.2 x10^3/uL (1.0-4.8) Monocytes # (Auto) 0.7 x10^3/uL (0.0-1.1) Eosinophils # (Auto) 0.3 x10^3/uL (0.0-0.7) Basophils # (Auto) 0.0 x10^3/uL (0.0-0.2) Sodium Level 138 mmol/L (136-145) Potassium Level 4.5 mmol/L (3.5-5.1) Chloride Level 102 mmol/L (98-107) Carbon Dioxide Level 31 mmol/L (21-32) Anion Gap 5 (6-14) Blood Urea Nitrogen 26 mg/dL (8-26) Creatinine 1.2 mg/dL (0.7-1.3) Estimated GFR (Cockcroft-Gault) 60.2 Glucose Level 183 mg/dL (70-99) Calcium Level 8.4 mg/dL (8.5-10.1) Glucose (Fingerstick) 182 mg/dL (70-99) Laboratory Tests Test 10/24/16 16:41 10/24/16 19:40 10/25/16 07:39 10/25/16 09:40 Glucose (Fingerstick) 124 mg/dL (70-99) 113 mg/dL (70-99) 92 mg/dL (70-99) White Blood Count 8.0 x10^3/uL (4.0-11.0) Red Blood Count 4.55 x10^6/uL (4.30-5.70) Hemoglobin 12.5 g/dL (13.0-17.5) Hematocrit 38.2 % (39.0-53.0) Mean Corpuscular Volume 84 fL (79-100) Mean Corpuscular Hemoglobin 28 pg (25-35) Mean Corpuscular Hemoglobin Concent 33 g/dL (31-37) Red Cell Distribution Width 17.6 % (11.5-14.5) Platelet Count 201 x10^3/uL (140-400) Neutrophils (%) (Auto) 72 % (31-73) Lymphocytes (%) (Auto) 15 % (24-48) Monocytes (%) (Auto) 9 % (0-9) Eosinophils (%) (Auto) 3 % (0-3) Basophils (%) (Auto) 0 % (0-3) Neutrophils # (Auto) 5.7 x10^3uL (1.8-7.7) Lymphocytes # (Auto) 1.2 x10^3/uL (1.0-4.8) Monocytes # (Auto) 0.7 x10^3/uL (0.0-1.1) Eosinophils # (Auto) 0.3 x10^3/uL (0.0-0.7) Basophils # (Auto) 0.0 x10^3/uL (0.0-0.2) Sodium Level 138 mmol/L (136-145) Potassium Level 4.5 mmol/L (3.5-5.1) Chloride Level 102 mmol/L (98-107) Carbon Dioxide Level 31 mmol/L (21-32) Anion Gap 5 (6-14) Blood Urea Nitrogen 26 mg/dL (8-26) Creatinine 1.2 mg/dL (0.7-1.3) Estimated GFR (Cockcroft-Gault) 60.2 Glucose Level 183 mg/dL (70-99) Calcium Level 8.4 mg/dL (8.5-10.1) Test 10/25/16 11:21 Glucose (Fingerstick) 182 mg/dL (70-99) Microbiology 10/22/16 Urine Culture - Final, Complete 10/22/16 Urine Culture Result 1 (SHANE) - Final, Complete Medications Current Medications Ondansetron HCl (Zofran) 4 mg PRN Q8HRS PRN IV NAUSEA/VOMITING; Start 10/23/16 at 00:00; Stop 10/23/16 at 23:59; Status DC Sodium Chloride 1,000 ml @ 100 mls/hr Q10H IV Last administered on 10/23/16 01 :11; Start 10/23/16 at 00:00; Stop 10/23/16 at 00:03; Status DC Acetaminophen (Tylenol) 650 mg PRN Q4HRS PRN PO FEVER; Start 10/23/16 at 00:00; Stop 10/23/16 at 23:59; Status DC Ceftriaxone Sodium 1 gm/ Sodium Chloride 50 ml @ 100 mls/hr Q24H IV ; Start 10/23/16 at 22:00; Stop 10/23/16 at 22:00; Status DC Ceftriaxone Sodium 1 gm/ Sodium Chloride 50 ml @ 100 mls/hr ONCE ONCE IV Last administered on 10/23/16 01:11; Start 10/23/16 at 00:30; Stop 10/23/16 at 00: 59; Status DC Clonidine HCl (Catapres) 0.1 mg BID PO Last administered on 10/25/16 08:54; Start 10/23/16 at 13:30 Furosemide (Lasix) 40 mg DAILY PO Last administered on 10/24/16 08:44; Start at 13:30; Stop 10/24/16 at 14:16; Status DC Metoprolol Tartrate (Lopressor) 75 mg BID PO Last administered on 10/25/16 08: 51; Start 10/23/16 at 21:00 Trimethoprim/ Sulfamethoxazole (Bactrim Ss) 2 tab BID PO Last administered on 14:22; Start 10/23/16 at 13:30; Stop 10/23/16 at 17:14; Status DC Insulin Detemir (Levemir) 160 units QHS SQ Last administered on 10/23/16 22:51 ; Start 10/23/16 at 21:00 Losartan Potassium (Cozaar) 100 mg DAILY PO Last administered on 10/25/16 08:52 ; Start 10/23/16 at 13:30 Atorvastatin Calcium (Lipitor) 40 mg DAILY PO Last administered on 10/23/16 14: 20; Start 10/23/16 at 13:30; Stop 10/23/16 at 16:29; Status DC Insulin Aspart (NovoLOG) 22 units TIDAC SQ Last administered on 10/24/16 08:47 ; Start 10/23/16 at 14:00; Stop 10/24/16 at 09:43; Status DC Piperacillin Sod/ Tazobactam Sod 3.375 gm/Sodium Chloride 50 ml @ 100 mls/hr Q6HRS IV Last administered on 10/24/16 12:08; Start 10/23/16 at 20:30; Stop 10/24 at 14:22; Status DC Insulin Aspart (NovoLOG) 44 units TIDAC SQ Last administered on 10/25/16 12:12 ; Start 10/24/16 at 11:30 Furosemide (Lasix) 40 mg BID92 PO Last administered on 10/25/16 14:29; Start at 14:30 Potassium Chloride (Klor-Con) 20 meq DAILYWBKFT PO Last administered on 08:52; Start 10/25/16 at 08:00 Ciprofloxacin (Cipro) 750 mg BID PO Last administered on 10/25/16 08:53; Start 10/24/16 at 15:00 Linezolid (Zyvox) 600 mg BID PO Last administered on 10/25/16 08:53; Start 10/24 at 15:00 Acetaminophen/ Hydrocodone Bitart (Lortab 5/325) 1 tab PRN Q4HRS PRN PO PAIN Last administered on 10/24/16 22:15; Start 10/24/16 at 16:45 Tamsulosin HCl (Flomax) 0.4 mg DAILY PO Last administered on 10/25/16 08:54; Start 10/24/16 at 18:00 Zolpidem Tartrate (Ambien) 5 mg QHS PO Last administered on 10/24/16 22:14; Start 10/24/16 at 22:00 Zolpidem Tartrate (Ambien) 5 mg PRN QHS PRN PO INSOMNIA, GIVE ONLY IF NEEDED; Start 10/24/16 at 22:15 Active Scripts Active Reported Novolog (Insulin Aspart) 100 Unit/1 Ml Cartridge 22 Unit SQ TIDAC Bactrim 400-80 Mg Tablet (Sulfamethoxazole/Trimethoprim) 1 Each Tablet 2 Tab PO BID Crestor (Rosuvastatin Calcium) 10 Mg Tablet 1 Tab PO DAILY Nitrofurantoin Sharp-Mcr 100 Mg (Nitrofurantoin Monohyd/M-Cryst) 100 Mg Capsule 1 Cap PO BID Metoprolol Tartrate 25 Mg Tablet 3 Tab PO BID Metformin Hcl 1,000 Mg Tablet 1,000 Mg PO BIDWMEALS Losartan Potassium 100 Mg Tablet 100 Mg PO DAILY Levemir (Insulin Detemir) 100 Unit/1 Ml Vial 160 Unit SQ HS Novolog (Insulin Aspart) 100 Unit/1 Ml Cartridge 44 Unit SQ TIDAC Furosemide 40 Mg Tablet 1 Tab PO DAILY Clonidine Hcl 0.1 Mg Tablet 0.1 Mg PO BID Vitals/I & O Vital Sign - Last 24 Hours 10/24/16 10/24/16 10/24/16 10/24/16 16:55 19:49 20:00 22:14 Temp 97.8 97.8 Pulse 73 73 Resp 18 20 B/P (MAP) 134/63 (86) 134/63 Pulse Ox 97 99 O2 Delivery Nasal Cannula Nasal Cannula Nasal Cannula O2 Flow Rate 3.0 3.0 3.0 10/24/16 10/24/16 10/24/16 10/24/16 22:14 22:15 23:20 23:32 Temp 97.6 97.6 Pulse 73 72 Resp 18 18 20 B/P (MAP) 134/63 114/50 (71) Pulse Ox 99 99 95 O2 Delivery Nasal Cannula Nasal Cannula Nasal Cannula O2 Flow Rate 3.0 3.0 3.0 10/25/16 10/25/16 10/25/16 10/25/16 03:00 07:35 08:00 08:51 Temp 96.9 97.7 96.9 97.7 Pulse 83 82 82 Resp 19 18 B/P (MAP) 131/72 (91) 139/65 (89) 139/65 Pulse Ox 93 95 O2 Delivery Nasal Cannula Nasal Cannula Nasal Cannula O2 Flow Rate 3.0 3.0 3.0 10/25/16 10/25/16 10/25/16 08:52 08:54 10:34 Temp 97.5 97.5 Pulse 82 82 60 Resp 18 B/P (MAP) 139/65 139/65 121/61 (81) Pulse Ox 95 O2 Delivery Room Air Intake and Output 10/24/16 10/24/16 10/25/16 15:00 23:00 07:00 Intake Total 400 ml 240 ml 0 ml Output Total 600 ml 400 ml Balance -200 ml -160 ml 0 ml CAREN PUGA III DO Oct 25, 2016 15:14
[2016-10-25 19:54] VITALS: BP 141/90
[2016-10-25] MEDS: ZOLPIDEM 5 MG TABLET. PO SCH (21:45)
[2016-10-25] MEDS: INSULIN DETEMIR 300 UNITS/3 ML INSULN.PEN. SQ SCH (21:51)
[2016-10-25 23:58] VITALS: BP 110/47
[2016-10-26 02:03] VITALS: BP 146/84
[2016-10-26] MEDS: HYDROcodone/APAP 5/325MG 1 TAB TABLET PO PRN (02:10)
--- NOTE | 2016-10-26 04:10 | CONS ---
DATE OF CONSULTATION: 10/24/2016 SERVICE: Infectious Disease. REFERRING PHYSICIAN: Dr. Cox. REASON FOR CONSULTATION: Leukocytosis. HISTORY OF PRESENT ILLNESS: This patient is a 70-year-old male with a past medical history of morbid obesity with a BMI of 58, diabetes mellitus and chronic venous insufficiency of lower extremities. He is usually followed by the DC. He was recently diagnosed with a urinary tract infection and prescribed Bactrim. On his return home from [place], he became weak and fell. He tried for nearly 9 hours to get back up before reaching the phone and calling 911. On arrival to the ER, he had a white blood cell count of 17,000, segs 68%, bands 27%. Creatinine 1.4 and CPK 3660. X-ray of lumbar spine revealed no evidence of fractures. The patient is feeling better. He has dressings to lower extremities that were recently changed. He says he has been battling chronic swelling in his legs for over 15 years. Denies fevers, chills or sweats. Denies cough, shortness of air or chest discomfort. Denies nausea, vomiting or diarrhea. Denies dysuria, frequency or urgency. PAST MEDICAL HISTORY: Diabetes mellitus type 2, hypertension, myocardial infarction, morbid obesity, atrial fibrillation, chronic venous insufficiency. PAST SURGICAL HISTORY: Appendectomy. FAMILY HISTORY: Positive for coronary artery disease. SOCIAL HISTORY: The patient lives at home. Usually followed by DC. ALLERGIES: No known drug allergies. MEDICATIONS: Zosyn. He did receive a one-time dose of Bactrim before discontinued. Other medications are available and have been reviewed on the [facility]. REVIEW OF SYSTEMS: Per HPI, otherwise all other review of systems are negative. PHYSICAL EXAMINATION: GENERAL: Pleasant male, propped up in bed, in no apparent distress. VITAL SIGNS: Temperature is 97.7, blood pressure 139/78, heart rate 66, respiratory rate 18, pulse oximetry is 95% on 3 liters nasal cannula. Weight is 458.38 pounds. BMI of 58.9. HEENT: Pupils equally round. Normal conjunctivae. Oral mucosa is pink and moist. NECK: Supple. LUNGS: Clear to auscultation. HEART: Normal S1, S2. ABDOMEN: Obese, bowel sounds are present, soft, nontender. EXTREMITIES: Bilateral lower extremity edema. Left leg is erythematous from foot to upper medial thigh with blistering and warmth. He has dressing on both legs that were recently changed. Refer to the chart for pictures. SKIN: Without rash. NEUROLOGIC: Alert and oriented x 3. Moves all extremities. LABORATORY DATA: WBC 17,100, hemoglobin 13.8, platelet count 240,000, segs 68%, bands 27%. Electrolytes are unremarkable. Creatinine 1.4. BUN 25, glucose 117, creatinine kinase 3660. Urinalysis unremarkable for infection. Knee x-ray shows bilateral degenerative change, greater on left. Lumbar spine x-ray shows spondylosis in lower thoracic and upper lumbar spine. No acute bony abnormality seen. IMPRESSION: 1. Leukocytosis. 2. Cellulitis of left lower extremity superimposed on chronic venous insufficiency. 3. Rhabdomyolysis post fall. 4. Diabetes mellitus. 5. Morbid obesity with a BMI of 58. PLAN: Continue the Zosyn. Monitor WBC count, creatinine, temperature. Local wound care and leg elevation. Glucose control, diet and weight management. Thank you Dr. Underwood for asking us to participate in this patient's care. Should you have further questions or concerns, please call. GLENNY ROQUE MD DR: BREEZY/edilma JOB#: [id number] / [id number]
[2016-10-26 07:00] VITALS: BP 149/88
[2016-10-26] MEDS: CIPROFLOXACIN HCL 250 MG TABLET. PO SCH ×2 (08:13→17:28)
[2016-10-26] MEDS: FUROSEMIDE 40 MG TABLET. PO SCH ×3 (08:13→14:00)
[2016-10-26] MEDS: LINEZOLID 600 MG TABLET PO SCH ×2 (08:13→17:28)
[2016-10-26] MEDS: TAMSULOSIN 0.4 MG CAP.ER.24H. PO SCH (08:14)
[2016-10-26] MEDS: POTASSIUM CHLORIDE 20 MEQ TABLET.ER. PO SCH (08:14)
[2016-10-26] MEDS: METOPROLOL TART IMMED RELEASE 25 MG TABLET. PO SCH (08:15)
[2016-10-26] MEDS: cloNIDine HCL 0.1 MG TABLET PO SCH (08:16)
[2016-10-26] MEDS: INSULIN ASPART 300 UNITS/3 ML INSULN.PEN SQ SCH ×3 (08:20→17:31)
--- NOTE | 2016-10-26 09:24 | PDOC ---
Infectious Disease Note Subjective Subjective RN unable to place IV yesterday, abx changed to oral route. Tolerating well Strength improving, says able to walk now Denies pain, Hoping to go home soon ROS ROS GEN: Denies fevers, chills, sweats HEENT: Denies blurred vision, sore throat CV: Denies chest pain RESP: Denies shortness of air, cough GI: Denies n/v/d NEURO: Denies confusion, dizziness Vital Sign Vital Signs Vital Signs Date Time Temp Pulse Resp B/P (MAP) Pulse Ox O2 Delivery O2 Flow Rate FiO2 10/26/16 08:16 98 149/88 10/26/16 07:00 98.1 18 90 Room Air 98.1 10/26/16 03:10 3.0 Physical Exam PHYSICAL EXAM GENERAL: NAD, Alert HEENT: PERRL, OC/OP NECK: Supple, no JVD, no LN LUNGS: Clear HEART: S1S2, no gallop, no murmur ABD: Soft, NT, no organomegaly, no rebound EXT: 2-3 + edema, no cyanosis , left leg red ORDER [employer]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: Alert, oriented x 3, no focal neurologic deficit SKIN: No rash IV: ok Labs Lab Laboratory Tests Test 10/25/16 09:40 10/25/16 11:21 10/25/16 16:18 10/25/16 21:16 White Blood Count 8.0 x10^3/uL (4.0-11.0) Red Blood Count 4.55 x10^6/uL (4.30-5.70) Hemoglobin 12.5 g/dL (13.0-17.5) Hematocrit 38.2 % (39.0-53.0) Mean Corpuscular Volume 84 fL (79-100) Mean Corpuscular Hemoglobin 28 pg (25-35) Mean Corpuscular Hemoglobin Concent 33 g/dL (31-37) Red Cell Distribution Width 17.6 % (11.5-14.5) Platelet Count 201 x10^3/uL (140-400) Neutrophils (%) (Auto) 72 % (31-73) Lymphocytes (%) (Auto) 15 % (24-48) Monocytes (%) (Auto) 9 % (0-9) Eosinophils (%) (Auto) 3 % (0-3) Basophils (%) (Auto) 0 % (0-3) Neutrophils # (Auto) 5.7 x10^3uL (1.8-7.7) Lymphocytes # (Auto) 1.2 x10^3/uL (1.0-4.8) Monocytes # (Auto) 0.7 x10^3/uL (0.0-1.1) Eosinophils # (Auto) 0.3 x10^3/uL (0.0-0.7) Basophils # (Auto) 0.0 x10^3/uL (0.0-0.2) Sodium Level 138 mmol/L (136-145) Potassium Level 4.5 mmol/L (3.5-5.1) Chloride Level 102 mmol/L (98-107) Carbon Dioxide Level 31 mmol/L (21-32) Anion Gap 5 (6-14) Blood Urea Nitrogen 26 mg/dL (8-26) Creatinine 1.2 mg/dL (0.7-1.3) Estimated GFR (Cockcroft-Gault) 60.2 Glucose Level 183 mg/dL (70-99) Calcium Level 8.4 mg/dL (8.5-10.1) Glucose (Fingerstick) 182 mg/dL (70-99) 185 mg/dL (70-99) 238 mg/dL (70-99) Test 10/26/16 07:10 10/26/16 09:05 Glucose (Fingerstick) 102 mg/dL (70-99) 164 mg/dL (70-99) Objective Assessment Leukocytosis Cellulitis of LLE superimposed on chronic venous insufficiency Rhabdomyolysis post fall DM Morbid Obesity, BMI 58 Recent Dx UIT-took Bactrim 1-2 days prior to admit Plan Plan of Care Zyvox and cipro for 7 days f/u today's labs Local wound care and leg elevation ( pt does not do ) Glucose control Diet and weight management ok to d/c GLENNY ROQUE MD Oct 26, 2016 09:24
--- NOTE | 2016-10-26 09:54 | PDOC ---
PROGRESS NOTES Subjective Subjective He almost have a fall yesterday but denies any increased pain. Objective Objective Vital Signs Date Time Temp Pulse Resp B/P (MAP) Pulse Ox O2 Delivery O2 Flow Rate FiO2 10/26/16 08:16 98 149/88 10/26/16 08:00 Nasal Cannula 3.0 10/26/16 07:00 98.1 18 90 98.1 Intake and Output 10/26/16 07:00 Intake Total 960 ml Output Total 3400 ml Balance -2440 ml Intake Oral 960 ml Output Urine Total 3400 ml # Bowel Movements 3 Physical Exam Physical Exam He is sitting at edge of bed and he had compression dressing to his legs and he continues with redness and edema of his feet and legs. He is constipated.he did walk 250' with roller walker with physical therapy yesterday. Assessment Assessment Problems Medical Problems: (1) Generalized weakness Status: Acute (2) Rhabdomyolysis Status: Acute Plan Plan of Shelter with home health or SNF transfer when medically stable. Comment Review of Relevant I have reviewed the following items gela (where applicable) has been applied. Labs Laboratory Tests Test 10/24/16 11:26 10/24/16 14:58 10/24/16 16:41 10/24/16 19:40 Glucose (Fingerstick) 209 mg/dL (70-99) 182 mg/dL (70-99) 124 mg/dL (70-99) 113 mg/dL (70-99) Test 10/25/16 07:39 10/25/16 09:40 10/25/16 11:21 10/25/16 16:18 Glucose (Fingerstick) 92 mg/dL (70-99) 182 mg/dL (70-99) 185 mg/dL (70-99) White Blood Count 8.0 x10^3/uL (4.0-11.0) Red Blood Count 4.55 x10^6/uL (4.30-5.70) Hemoglobin 12.5 g/dL (13.0-17.5) Hematocrit 38.2 % (39.0-53.0) Mean Corpuscular Volume 84 fL (79-100) Mean Corpuscular Hemoglobin 28 pg (25-35) Mean Corpuscular Hemoglobin Concent 33 g/dL (31-37) Red Cell Distribution Width 17.6 % (11.5-14.5) Platelet Count 201 x10^3/uL (140-400) Neutrophils (%) (Auto) 72 % (31-73) Lymphocytes (%) (Auto) 15 % (24-48) Monocytes (%) (Auto) 9 % (0-9) Eosinophils (%) (Auto) 3 % (0-3) Basophils (%) (Auto) 0 % (0-3) Neutrophils # (Auto) 5.7 x10^3uL (1.8-7.7) Lymphocytes # (Auto) 1.2 x10^3/uL (1.0-4.8) Monocytes # (Auto) 0.7 x10^3/uL (0.0-1.1) Eosinophils # (Auto) 0.3 x10^3/uL (0.0-0.7) Basophils # (Auto) 0.0 x10^3/uL (0.0-0.2) Sodium Level 138 mmol/L (136-145) Potassium Level 4.5 mmol/L (3.5-5.1) Chloride Level 102 mmol/L (98-107) Carbon Dioxide Level 31 mmol/L (21-32) Anion Gap 5 (6-14) Blood Urea Nitrogen 26 mg/dL (8-26) Creatinine 1.2 mg/dL (0.7-1.3) Estimated GFR (Cockcroft-Gault) 60.2 Glucose Level 183 mg/dL (70-99) Calcium Level 8.4 mg/dL (8.5-10.1) Test 10/25/16 21:16 10/26/16 07:10 10/26/16 09:05 Glucose (Fingerstick) 238 mg/dL (70-99) 102 mg/dL (70-99) 164 mg/dL (70-99) Laboratory Tests Test 10/25/16 11:21 10/25/16 16:18 10/25/16 21:16 10/26/16 07:10 Glucose (Fingerstick) 182 mg/dL (70-99) 185 mg/dL (70-99) 238 mg/dL (70-99) 102 mg/dL (70-99) Test 10/26/16 09:05 Glucose (Fingerstick) 164 mg/dL (70-99) Microbiology 10/22/16 Urine Culture - Final, Complete 10/22/16 Urine Culture Result 1 (SHANE) - Final, Complete Medications Current Medications Ondansetron HCl (Zofran) 4 mg PRN Q8HRS PRN IV NAUSEA/VOMITING; Start 10/23/16 at 00:00; Stop 10/23/16 at 23:59; Status DC Sodium Chloride 1,000 ml @ 100 mls/hr Q10H IV Last administered on 10/23/16 01 :11; Start 10/23/16 at 00:00; Stop 10/23/16 at 00:03; Status DC Acetaminophen (Tylenol) 650 mg PRN Q4HRS PRN PO FEVER; Start 10/23/16 at 00:00; Stop 10/23/16 at 23:59; Status DC Ceftriaxone Sodium 1 gm/ Sodium Chloride 50 ml @ 100 mls/hr Q24H IV ; Start 10/23/16 at 22:00; Stop 10/23/16 at 22:00; Status DC Ceftriaxone Sodium 1 gm/ Sodium Chloride 50 ml @ 100 mls/hr ONCE ONCE IV Last administered on 10/23/16 01:11; Start 10/23/16 at 00:30; Stop 10/23/16 at 00: 59; Status DC Clonidine HCl (Catapres) 0.1 mg BID PO Last administered on 10/26/16 08:16; Start 10/23/16 at 13:30 Furosemide (Lasix) 40 mg DAILY PO Last administered on 10/24/16 08:44; Start at 13:30; Stop 10/24/16 at 14:16; Status DC Metoprolol Tartrate (Lopressor) 75 mg BID PO Last administered on 10/26/16 08: 15; Start 10/23/16 at 21:00 Trimethoprim/ Sulfamethoxazole (Bactrim Ss) 2 tab BID PO Last administered on 14:22; Start 10/23/16 at 13:30; Stop 10/23/16 at 17:14; Status DC Insulin Detemir (Levemir) 160 units QHS SQ Last administered on 10/25/16 21:51 ; Start 10/23/16 at 21:00 Losartan Potassium (Cozaar) 100 mg DAILY PO Last administered on 10/25/16 08:52 ; Start 10/23/16 at 13:30; Stop 10/26/16 at 08:29; Status DC Atorvastatin Calcium (Lipitor) 40 mg DAILY PO Last administered on 10/23/16 14: 20; Start 10/23/16 at 13:30; Stop 10/23/16 at 16:29; Status DC Insulin Aspart (NovoLOG) 22 units TIDAC SQ Last administered on 10/24/16 08:47 ; Start 10/23/16 at 14:00; Stop 10/24/16 at 09:43; Status DC Piperacillin Sod/ Tazobactam Sod 3.375 gm/Sodium Chloride 50 ml @ 100 mls/hr Q6HRS IV Last administered on 10/24/16 12:08; Start 10/23/16 at 20:30; Stop 10/24 at 14:22; Status DC Insulin Aspart (NovoLOG) 44 units TIDAC SQ Last administered on 10/26/16 08:20 ; Start 10/24/16 at 11:30 Furosemide (Lasix) 40 mg [id number] PO Last administered on 10/26/16 08:13; Start at 14:30 Potassium Chloride (Klor-Con) 20 meq DAILYWBKFT PO Last administered on 08:14; Start 10/25/16 at 08:00 Ciprofloxacin (Cipro) 750 mg BID PO Last administered on 10/26/16 08:13; Start 10/24/16 at 15:00 Linezolid (Zyvox) 600 mg BID PO Last administered on 10/26/16 08:13; Start 10/24 at 15:00 Acetaminophen/ Hydrocodone Bitart (Lortab 5/325) 1 tab PRN Q4HRS PRN PO PAIN Last administered on 10/26/16 02:10; Start 10/24/16 at 16:45 Tamsulosin HCl (Flomax) 0.4 mg DAILY PO Last administered on 10/26/16 08:14; Start 10/24/16 at 18:00 Zolpidem Tartrate (Ambien) 5 mg QHS PO Last administered on 10/25/16 21:45; Start 10/24/16 at 22:00 Zolpidem Tartrate (Ambien) 5 mg PRN QHS PRN PO INSOMNIA, GIVE ONLY IF NEEDED; Start 10/24/16 at 22:15 Losartan Potassium (Cozaar) 100 mg QHS PO ; Start 10/26/16 at 21:00 Active Scripts Active Reported Novolog (Insulin Aspart) 100 Unit/1 Ml Cartridge 22 Unit SQ TIDAC Bactrim 400-80 Mg Tablet (Sulfamethoxazole/Trimethoprim) 1 Each Tablet 2 Tab PO BID Crestor (Rosuvastatin Calcium) 10 Mg Tablet 1 Tab PO DAILY Nitrofurantoin [place]-Mcr 100 Mg (Nitrofurantoin Monohyd/M-Cryst) 100 Mg Capsule 1 Cap PO BID Metoprolol Tartrate 25 Mg Tablet 3 Tab PO BID Metformin Hcl 1,000 Mg Tablet 1,000 Mg PO BIDWMEALS Losartan Potassium 100 Mg Tablet 100 Mg PO DAILY Levemir (Insulin Detemir) 100 Unit/1 Ml Vial 160 Unit SQ HS Novolog (Insulin Aspart) 100 Unit/1 Ml Cartridge 44 Unit SQ TIDAC Furosemide 40 Mg Tablet 1 Tab PO DAILY Clonidine Hcl 0.1 Mg Tablet 0.1 Mg PO BID Vitals/I & O Vital Sign - Last 24 Hours 10/25/16 10/25/16 10/25/16 10/25/16 10:34 14:30 19:54 20:00 Temp 97.5 97.7 98.1 97.5 97.7 98.1 Pulse 60 63 93 Resp 18 18 18 B/P (MAP) 121/61 (81) 113/74 (87) 141/90 (107) Pulse Ox 95 93 94 O2 Delivery Room Air Room Air Room Air Nasal Cannula O2 Flow Rate 3.0 10/25/16 10/25/16 10/25/16 10/26/16 21:45 21:45 23:58 02:03 Temp 97.8 97.8 Pulse 85 85 69 93 Resp 22 18 B/P (MAP) 132/70 132/70 110/47 (68) 146/84 (104) Pulse Ox 94 O2 Delivery Room Air Room Air 10/26/16 10/26/16 10/26/16 10/26/16 02:10 03:10 07:00 08:00 Temp 98.1 98.1 Pulse 98 Resp 20 20 18 B/P (MAP) 149/88 (108) Pulse Ox 94 94 90 O2 Delivery Nasal Cannula Nasal Cannula Room Air Nasal Cannula O2 Flow Rate 3.0 3.0 3.0 10/26/16 10/26/16 08:15 08:16 Pulse 98 98 B/P (MAP) 149/88 149/88 Intake and Output 10/25/16 10/25/16 10/26/16 15:00 23:00 07:00 Intake Total 540 ml 180 ml 240 ml Output Total 300 ml 2500 ml 600 ml Balance 240 ml -2320 ml -360 ml BRENTON GUTIÉRREZ MD Oct 26, 2016 09:54
[2016-10-26 11:00] VITALS: BP 139/75
--- NOTE | 2016-10-26 13:44 | PDOC ---
PROGRESS NOTES Chief Complaint Chief Complaint Fall with severe Rhabdomyolysis ASSESSMENT AND PLAN: 1. Fall: unable to get up unaided. needs OT/PT post d/c 2. Rhabdomyolysis: resolved 3. Cellulitis: Cipro, zyvox for 7 days 4. Chronic venous stasis: elevate legs as much as possible 5. Leukocytosis: resolved 6. UTI prior to admit, part rx.ed on O/P basis. cipro should cover 7. DM: well controlled on home regimen 8. CAD, afib: no acute issues, cont home meds, incl preventive meds 7. Morbid obesity, BMI 58 8. Dispo: cleared by ID and physiatry. home w/ HH History of Present Illness History of Present Illness feels ok, ready to go home Vitals Vitals Vital Signs Date Time Temp Pulse Resp B/P (MAP) Pulse Ox O2 Delivery O2 Flow Rate FiO2 10/26/16 11:00 97.2 64 18 139/75 (96) 96 Room Air 97.2 10/26/16 08:00 3.0 Physical Exam General: Alert, Oriented X3, Cooperative, No acute distress Heart: Regular rate Lungs: Clear Abdomen: Normal bowel sounds, Other (massively obese) Extremities: Other (Massive erythematous edema) Skin: Other (legs with cellulitis) Labs LABS Laboratory Tests Test 10/25/16 16:18 10/25/16 21:16 10/26/16 07:10 10/26/16 09:05 Glucose (Fingerstick) 185 mg/dL (70-99) 238 mg/dL (70-99) 102 mg/dL (70-99) 164 mg/dL (70-99) Test 10/26/16 10:03 Glucose (Fingerstick) 164 mg/dL (70-99) Comment Review of Relevant I have reviewed the following items gela (where applicable) has been applied. Labs Laboratory Tests Test 10/24/16 14:58 10/24/16 16:41 10/24/16 19:40 10/25/16 07:39 Glucose (Fingerstick) 182 mg/dL (70-99) 124 mg/dL (70-99) 113 mg/dL (70-99) 92 mg/dL (70-99) Test 10/25/16 09:40 10/25/16 11:21 10/25/16 16:18 10/25/16 21:16 White Blood Count 8.0 x10^3/uL (4.0-11.0) Red Blood Count 4.55 x10^6/uL (4.30-5.70) Hemoglobin 12.5 g/dL (13.0-17.5) Hematocrit 38.2 % (39.0-53.0) Mean Corpuscular Volume 84 fL (79-100) Mean Corpuscular Hemoglobin 28 pg (25-35) Mean Corpuscular Hemoglobin Concent 33 g/dL (31-37) Red Cell Distribution Width 17.6 % (11.5-14.5) Platelet Count 201 x10^3/uL (140-400) Neutrophils (%) (Auto) 72 % (31-73) Lymphocytes (%) (Auto) 15 % (24-48) Monocytes (%) (Auto) 9 % (0-9) Eosinophils (%) (Auto) 3 % (0-3) Basophils (%) (Auto) 0 % (0-3) Neutrophils # (Auto) 5.7 x10^3uL (1.8-7.7) Lymphocytes # (Auto) 1.2 x10^3/uL (1.0-4.8) Monocytes # (Auto) 0.7 x10^3/uL (0.0-1.1) Eosinophils # (Auto) 0.3 x10^3/uL (0.0-0.7) Basophils # (Auto) 0.0 x10^3/uL (0.0-0.2) Sodium Level 138 mmol/L (136-145) Potassium Level 4.5 mmol/L (3.5-5.1) Chloride Level 102 mmol/L (98-107) Carbon Dioxide Level 31 mmol/L (21-32) Anion Gap 5 (6-14) Blood Urea Nitrogen 26 mg/dL (8-26) Creatinine 1.2 mg/dL (0.7-1.3) Estimated GFR (Cockcroft-Gault) 60.2 Glucose Level 183 mg/dL (70-99) Calcium Level 8.4 mg/dL (8.5-10.1) Glucose (Fingerstick) 182 mg/dL (70-99) 185 mg/dL (70-99) 238 mg/dL (70-99) Test 10/26/16 07:10 10/26/16 09:05 10/26/16 10:03 Glucose (Fingerstick) 102 mg/dL (70-99) 164 mg/dL (70-99) 164 mg/dL (70-99) Laboratory Tests Test 10/25/16 16:18 10/25/16 21:16 10/26/16 07:10 10/26/16 09:05 Glucose (Fingerstick) 185 mg/dL (70-99) 238 mg/dL (70-99) 102 mg/dL (70-99) 164 mg/dL (70-99) Test 10/26/16 10:03 Glucose (Fingerstick) 164 mg/dL (70-99) Microbiology 10/22/16 Urine Culture - Final, Complete 10/22/16 Urine Culture Result 1 (SHANE) - Final, Complete Medications Current Medications Ondansetron HCl (Zofran) 4 mg PRN Q8HRS PRN IV NAUSEA/VOMITING; Start 10/23/16 at 00:00; Stop 10/23/16 at 23:59; Status DC Sodium Chloride 1,000 ml @ 100 mls/hr Q10H IV Last administered on 10/23/16 01 :11; Start 10/23/16 at 00:00; Stop 10/23/16 at 00:03; Status DC Acetaminophen (Tylenol) 650 mg PRN Q4HRS PRN PO FEVER; Start 10/23/16 at 00:00; Stop 10/23/16 at 23:59; Status DC Ceftriaxone Sodium 1 gm/ Sodium Chloride 50 ml @ 100 mls/hr Q24H IV ; Start 10/23/16 at 22:00; Stop 10/23/16 at 22:00; Status DC Ceftriaxone Sodium 1 gm/ Sodium Chloride 50 ml @ 100 mls/hr ONCE ONCE IV Last administered on 10/23/16 01:11; Start 10/23/16 at 00:30; Stop 10/23/16 at 00: 59; Status DC Clonidine HCl (Catapres) 0.1 mg BID PO Last administered on 10/26/16 08:16; Start 10/23/16 at 13:30 Furosemide (Lasix) 40 mg DAILY PO Last administered on 10/24/16 08:44; Start at 13:30; Stop 10/24/16 at 14:16; Status DC Metoprolol Tartrate (Lopressor) 75 mg BID PO Last administered on 10/26/16 08: 15; Start 10/23/16 at 21:00 Trimethoprim/ Sulfamethoxazole (Bactrim Ss) 2 tab BID PO Last administered on 14:22; Start 10/23/16 at 13:30; Stop 10/23/16 at 17:14; Status DC Insulin Detemir (Levemir) 160 units QHS SQ Last administered on 10/25/16 21:51 ; Start 10/23/16 at 21:00 Losartan Potassium (Cozaar) 100 mg DAILY PO Last administered on 10/25/16 08:52 ; Start 10/23/16 at 13:30; Stop 10/26/16 at 08:29; Status DC Atorvastatin Calcium (Lipitor) 40 mg DAILY PO Last administered on 10/23/16 14: 20; Start 10/23/16 at 13:30; Stop 10/23/16 at 16:29; Status DC Insulin Aspart (NovoLOG) 22 units TIDAC SQ Last administered on 10/24/16 08:47 ; Start 10/23/16 at 14:00; Stop 10/24/16 at 09:43; Status DC Piperacillin Sod/ Tazobactam Sod 3.375 gm/Sodium Chloride 50 ml @ 100 mls/hr Q6HRS IV Last administered on 10/24/16 12:08; Start 10/23/16 at 20:30; Stop 10/24 at 14:22; Status DC Insulin Aspart (NovoLOG) 44 units TIDAC SQ Last administered on 10/26/16 12:10 ; Start 10/24/16 at 11:30 Furosemide (Lasix) 40 mg BID92 PO Last administered on 10/26/16 08:13; Start at 14:30 Potassium Chloride (Klor-Con) 20 meq DAILYWBKFT PO Last administered on 08:14; Start 10/25/16 at 08:00 Ciprofloxacin (Cipro) 750 mg BID PO Last administered on 10/26/16 08:13; Start 10/24/16 at 15:00 Linezolid (Zyvox) 600 mg BID PO Last administered on 10/26/16 08:13; Start 10/24 at 15:00 Acetaminophen/ Hydrocodone Bitart (Lortab 5/325) 1 tab PRN Q4HRS PRN PO PAIN Last administered on 10/26/16 02:10; Start 10/24/16 at 16:45 Tamsulosin HCl (Flomax) 0.4 mg DAILY PO Last administered on 10/26/16 08:14; Start 10/24/16 at 18:00 Zolpidem Tartrate (Ambien) 5 mg QHS PO Last administered on 10/25/16 21:45; Start 10/24/16 at 22:00 Zolpidem Tartrate (Ambien) 5 mg PRN QHS PRN PO INSOMNIA, GIVE ONLY IF NEEDED; Start 10/24/16 at 22:15 Losartan Potassium (Cozaar) 100 mg QHS PO ; Start 10/26/16 at 21:00 Active Scripts Active Reported Novolog (Insulin Aspart) 100 Unit/1 Ml Cartridge 22 Unit SQ TIDAC Bactrim 400-80 Mg Tablet (Sulfamethoxazole/Trimethoprim) 1 Each Tablet 2 Tab PO BID Crestor (Rosuvastatin Calcium) 10 Mg Tablet 1 Tab PO DAILY Nitrofurantoin [place]-Mcr 100 Mg (Nitrofurantoin Monohyd/M-Cryst) 100 Mg Capsule 1 Cap PO BID Metoprolol Tartrate 25 Mg Tablet 3 Tab PO BID Metformin Hcl 1,000 Mg Tablet 1,000 Mg PO BIDWMEALS Losartan Potassium 100 Mg Tablet 100 Mg PO DAILY Levemir (Insulin Detemir) 100 Unit/1 Ml Vial 160 Unit SQ HS Novolog (Insulin Aspart) 100 Unit/1 Ml Cartridge 44 Unit SQ TIDAC Furosemide 40 Mg Tablet 1 Tab PO DAILY Clonidine Hcl 0.1 Mg Tablet 0.1 Mg PO BID Vitals/I & O Vital Sign - Last 24 Hours 10/25/16 10/25/16 10/25/16 10/25/16 14:30 19:54 20:00 21:45 Temp 97.7 98.1 97.7 98.1 Pulse 63 93 85 Resp 18 18 B/P (MAP) 113/74 (87) 141/90 (107) 132/70 Pulse Ox 93 94 O2 Delivery Room Air Room Air Nasal Cannula O2 Flow Rate 3.0 6/410/25/16 10/26/16 10/26/16 21:45 23:58 02:03 02:10 Temp 97.8 97.8 Pulse 85 69 93 Resp 22 18 20 B/P (MAP) 132/70 110/47 (68) 146/84 (104) Pulse Ox 94 94 O2 Delivery Room Air Room Air Nasal Cannula O2 Flow Rate 3.0 10/26/16 10/26/16 10/26/16 10/26/16 03:10 07:00 08:00 08:15 Temp 98.1 98.1 Pulse 98 98 Resp 20 18 B/P (MAP) 149/88 (108) 149/88 Pulse Ox 94 90 O2 Delivery Nasal Cannula Room Air Nasal Cannula O2 Flow Rate 3.0 3.0 10/26/16 10/26/16 08:16 11:00 Temp 97.2 97.2 Pulse 98 64 Resp 18 B/P (MAP) 149/88 139/75 (96) Pulse Ox 96 O2 Delivery Room Air Intake and Output 10/25/16 10/25/16 10/26/16 15:00 23:00 07:00 Intake Total 540 ml 180 ml 240 ml Output Total 300 ml 2500 ml 600 ml Balance 240 ml -2320 ml -360 ml JOAO PANDYA MD Oct 26, 2016 13:44
[2016-10-26] MEDS ORDERED: LINE600T PO (13:48)
[2016-10-26] MEDS ORDERED: CIPR250T30 PO (13:48)
[2016-10-26 15:00] VITALS: BP 145/77
[2016-10-26] MEDS ORDERED: LOSARTAN POTASSIUM 50 MG TABLET. PO SCH (21:00)
== END 2016-10-26 18:35 | disposition home health service (06) | DRG 558 ==
LOC: ER 21:40 → 5 NORTH 23:00 → UNDODISIN 10-24 13:09
PROVIDERS: ADMIT Internal Medicine; ATTEND Internal Medicine
DX: M62.82 Rhabdomyolysis (principal); N39.0 Urinary tract infection, site not specified; Z68.43 Body mass index [BMI] 50.0-59.9, adult; L03.115 Cellulitis of right lower limb; L03.116 Cellulitis of left lower limb; I48.91 Unspecified atrial fibrillation; I25.10 Atherosclerotic heart disease of native coronary artery without angina pectoris; G89.29 Other chronic pain; E66.01 Morbid (severe) obesity due to excess calories; E11.42 Type 2 diabetes mellitus with diabetic polyneuropathy; I10 Essential (primary) hypertension; I87.8 Other specified disorders of veins; M54.5 Low back pain; D72.829 Elevated white blood cell count, unspecified; I87.2 Venous insufficiency (chronic) (peripheral); M51.36 Other intervertebral disc degeneration, lumbar region; W18.30XA Fall on same level, unspecified, initial encounter; I89.0 Lymphedema, not elsewhere classified; M17.0 Bilateral primary osteoarthritis of knee; Z82.49 Family history of ischemic heart disease and other diseases of the circulatory system; I25.2 Old myocardial infarction; Z90.49 Acquired absence of other specified parts of digestive tract; Y93.89 Activity, other specified; Y92.098 Other place in other non-institutional residence as the place of occurrence of the external cause; Y99.8 Other external cause status; R60.0 Localized edema
CPT/HCPCS: 36415; 72100; 73565; 80048; 81001; 82550; 82962; 85007; 85027; 87086; 93005; J0696; J1815; J2543; J7030; 97116; 97530; 97535; 99285-25